=== PATIENT | male | born 2000 | race Caucasian/White ===

== ENCOUNTER 2022-09-30 00:20 | Observation (INO) | payer OTHER, SELFPAY ==
[2022-09-30] VITALS (92 sets, daily range): BP systolic 85–141; BP diastolic 48–96; PULSE 104–148; RESP 14–33; TEMP 36.3–36.4; O2SAT 96–100
[2022-09-30] MEDS: ONDANSETRON INJ 4 MG/2 ML VIAL (00:34)
--- NOTE | 2022-09-30 00:36 | ED.OVERDOSE ---
HPI - Overdose General Chief Complaint: Overdose Stated Complaint: etoh History of Present Illness HPI Narrative: Patient is a 22-year-old male presenting after an overdose. Patient was reportedly out drinking with friends tontigre. He was then found by his roommates with an empty bottle of Claritin and they were unable to wake him up so they called EMS. On arrival, patient is obviously intoxicated and hiccuping. Intermittently dry heaving. Not following commands currently but he is protecting his airway. Parents are at bedside and states they spoke with the roommates who are unsure if he took any other pills. Unsure if this was intentional or unintentional. Related Data Allergies Allergy/AdvReac Type Severity Reaction Status Date / Time No Known Allergies Allergy Verified 09/30/22 00:33 Review of Systems Review of Systems: ROS unobtainable: Yes unobtainable due to mental status PMFSH Past Medical History Medical History (Updated 10/01/22 @ 20:05 by Montserrat Morel MD) Seizure disorder During childhood. Not on any medications since age of 8 Family History Family History (Updated 09/30/22 @ 03:16 by Lindsey Parker RN) Father Heart attack Hx of heart artery stent Social History Social History (Updated 09/30/22 @ 08:56 by Edu Morrell MD) Social History: Denies smoking, denies drug use, drinks alcohol on weekends, binge drinking Smoking status: Never smoker Alcohol intake: current Substance use: never Spiritual care concerns: No Exam Narrative: GENERAL: intoxicated, intermittently dry heaving, hiccupping, protecting his airway HEAD: Normocephalic, atraumatic. EYES: pupils are 1mm, reactive and equal ENT: Nares clear, no rhinorrhea or epistaxis. Mucous membranes moist. NECK: Supple. CHEST: Clear to auscultation. No respiratory distress. HEART: Tachycardic, regular rhythm. No murmur heard. Normal peripheral pulses. ABDOMEN: Soft, nontender, nondistended, normal active bowel sounds. EXTREMITIES: Normal range of motion. No edema. SKIN: Warm, dry, no rash. NEURO: Intoxicated, sedated, moves all extremities spontaneously, full neuro exam unable to be performed due to mental status Course Vital Signs Vital signs: Vital Signs Temperature 97.3 F L 09/30/22 00:24 Pulse Rate 126 H 09/30/22 00:24 Respiratory Rate 14 09/30/22 00:24 Blood Pressure 113/55 L 09/30/22 00:24 Pulse Oximetry 99 09/30/22 00:24 Oxygen Delivery Room Air 09/30/22 00:24 Temperature 98.6 F 10/01/22 08:00 Pulse Rate 82 10/01/22 08:00 Respiratory Rate 12 10/01/22 08:00 Blood Pressure 138/82 10/01/22 08:00 Pulse Oximetry 100 10/01/22 08:00 Oxygen Delivery Room Air 09/30/22 20:00 MDM - Overdose MDM Narrative Medical decision making narrative: Patient is a 22-year-old male presenting with intoxication and possible overdose. EKG per my interpretation shows sinus tachycardia, right axis deviation, incomplete right bundle, no ST elevations or depressions. Poison control recommends supportive care and repeating CMP in 6 hours which will be around 7 AM. MAMADOU is 258. Pt becoming more awake, agitated while in the ER. He's attempting to get out of bed, not following commands. Soft restraints ordered to prevent pt from hurting self or removing IVs. Vitals remain adequate, he's saturating 100% on RA, EtCO2 averaging 35. Spoke with the ICU who has accepted the patient for observation. Spoke with the hospitalist who agrees with admission Differential Diagnosis Differential diagnosis: Likely poisoning by opiate or related narcotic, drug overdose, accidental drug ingestion and other (ethanol intoxication) Lab Data 09/30/22 00:38 09/30/22 00:38 Labs: Lab Results 09/30/22 09/30/22 09/30/22 Range/Units 00:38 00:38 00:38 WBC 10.3 H (4.5-10.0) K/mm3 RBC 5.64 (4.6-6.20) M/mm3 Hgb 17.1 (14.0-18.0) g/dL Hct 50.5 (42.0-52.0) % MCV
[2022-09-30 00:47] LABS: Basophils Absolute Auto 0.1 K/mm3 (0.0-0.1); Basophils Percent Auto 0.5 % (0.2-1.2); Eosinophils Percent Auto 0.2 % (0-4.4); Hematocrit 50.5 % (42.0-52.0); Hemoglobin 17.1 g/dL (14.0-18.0); Immature Granulocyte Absolute 0.07 K/mm3 (0.00-0.031); Immature Granulocyte Percent A 0.7 % (0-0.5); Lymphocytes Absolute Auto 2.75 K/mm3 (0.9-3.2); Lymphocytes Percent Auto 26.7 % (18.3-44.2); Mean Corpuscular HGB Conc 33.9 g/dl (32-36); Mean Corpuscular Hemoglobin 30.3 pg (26-34); Mean Corpuscular Volume 89.5 fl (80-100); Mean Platelet Volume 10.2 fl (7.4-10.4); Neutrophils Absolute Auto 6.4 K/mm3 (1.3-6.7); Neutrophils Percent Auto 61.9 % (45.5-73.1); Platelet Count Result 276 k/mm3 (150-375); Red Blood Count 5.64 M/mm3 (4.6-6.20); Red Cell Distribution Width 12.2 % (11.5-14.5); White Blood Count 10.3 K/mm3 (4.5-10.0)
--- NOTE | 2022-09-30 00:51 | ECG_ITS ---
Measurements Intervals [place] Rate: 109 P: 65 [place]: 165 QRS: 94 QRSD: 95 T: 14 QT: 326 QTc: 439 Interpretive Statements SINUS TACHYCARDIA RIGHT AXIS DEVIATION POSSIBLE LEFT ATRIAL ENLARGEMENT INCOMPLETE RIGHT BUNDLE BRANCH BLOCK NONSPECIFIC T-WAVE ABNORMALITY- INFERIOR LEADS ABNORMAL ECG NO PREVIOUS ECG AVAILABLE FOR COMPARISON Electronically Signed On 09-30-2022 6:52:01 BIOLOGY INTERN by Isma Patel D.O.
[2022-09-30 00:54] LABS: Acetaminophen < 10 ug/mL (10-30); Ethanol 258 mg/dL (<10); Salicylate < 1.0 mg/dL (2-20)
--- NOTE | 2022-09-30 00:55 | PC.NURSE ---
Sophie from poison control called to get update on pt. Sophie recommends supportive care, IV fluids, cardiac monitoring, and repeat CMP in 6 hours.
--- NOTE | 2022-09-30 00:56 | PC.NURSE ---
Perwick applied to pt at this time. SKin intact at this time.
[2022-09-30 00:57] LABS: Alanine Aminotransferase 21 U/L (6-50); Albumin Level 4.3 g/dL (3.5-5.1); Alkaline Phosphatase 88 U/L (38-126); Anion Gap 14 mmol/L (8-16); Aspartate Amino Transferase 35 U/L (17-59); Bilirubin,Total 0.4 mg/dL (0.2-1.3); Blood Urea Nitrogen 7 mg/dL (9-20); Calcium 8.7 mg/dL (8.4-10.2); Carbon Dioxide 23 mmol/L (22-30); Chloride 112 mmol/L (98-107); Estimated Glomerular Filt Rate > 60; Glucose 97 mg/dL (65-110); Potassium 4.2 mmol/L (3.4-5.0); Sodium 149 mmol/L (137-145)
[2022-09-30] MEDS: SODIUM CHLORIDE 0.9% IV 1,000 ML 999 ML IV CONT ×2 (01:13→01:22)
[2022-09-30 01:14] LABS: Mucus Urine Rare /lpf; RBC Urine 0-2 /hpf (0-2); Squamous Epithelial Cell Urine Rare /hpf (Few); WBC Urine 0-3 /hpf
[2022-09-30 01:18] LABS: Add Urine Microscopic? NO; Appearance Urine Clear (Clear); Bilirubin Urine Negative (Negative); Blood Urine Negative (Negative); Color Urine Yellow (Yellow); Glucose Urine UA Negative (Negative); Ketones Urine Negative (Negative); Leukocyte Esterase Ur Negative LEU/UL (Negative); Nitrate Urine Negative (Negative); Protein Urine Negative (Negative); Specific Grav Ur 1.015 (1.001-1.035); Urobilinogen Urine 0.2 mg/dL (<2.0); pH Urine 5.5 (5.0-9.0)
[2022-09-30 01:30] LABS: Amphetamine Screen Urine Negative (Negative); Barbiturate Screen Urine Negative (Negative); Benzodiazepines Screen Urine Negative (Negative); Cannabinoid Screen Urine Negative (Negative); Cocaine Screen Urine Negative (Negative); Methadone Screen Urine Negative (Negative); Opiate Screen Urine Negative (Negative); Phencyclidine Screen Urine Negative (Negative)
[2022-09-30 01:46] LABS: Base Excess ABG -6.5 mEq/l (+/-2.0); Fractional Inspired Oxygen 21 %; HCO3 ABG 20.3 mEq/l (22.0-26.0); Oxygen Saturation ABG 97.7 % (95.0-100.0); Oxyhemoglobin 96.3 % THb (90.0-100.0); PCO2 ABG 45.1 mmHg (35.0-45.0); PO2 ABG 115.6 mmHg (80.0-100.0); Total Hemoglobin 15.4 g/dL (12.0-18.0)
[2022-09-30 01:49] LABS: Device ROOM AIR; Modified Allen's Test Unable to perform; Site Drawn RIGHT RADIAL; pH ABG 7.272 (7.350-7.450)
--- NOTE | 2022-09-30 02:20 | PM.IMHP ---
H&P: HPI History of Present Illness Date/Time: 09/30/22 02:20 Chief Complaint: Altered mental status Narrative: This is a 22-year-old male with known significant past medical history patient was out with friends were drinks were involved later on patient was found unresponsive with an empty bottle of Claritin and anti but of ibuprofen patient was brought to the emergency room for evaluation. At the time of my visit patient is thrashing about in bed unable to give any history parents are at bedside. Preliminary workup was significant for ABG with a pH of 7.27, pCO2 45 PO2 114 and alcohol level was 256. Poison Control was called. Patient is been placed in ICU for one-to-one monitoring, further evaluation management and treatment. Review of Systems Review of Systems: ROS unobtainable: Yes unobtainable due to mental status (Intoxicated) PMFSH Family History Family History (Updated 09/30/22 @ 03:16 by Lindsey Parker RN) Father Heart attack Hx of heart artery stent Social History Social History Smoking status: Never smoker Alcohol intake: current Substance use: never Spiritual care concerns: No Meds Home Medications and Allergies Home Medications Medication Instructions Recorded Confirmed Type No Home Medications 09/30/22 09/30/22 History Allergies Allergy/AdvReac Type Severity Reaction Status Date / Time No Known Allergies Allergy Verified 09/30/22 00:33 Vital Signs Vital Signs - 24 hr 09/30/22 00:24 09/30/22 00:34 09/30/22 00:41 Temperature 97.3 F L Pulse Rate 126 H 115 H 111 H Respiratory Rate 14 22 H Blood Pressure 113/55 L Pulse Oximetry 99 98 Oxygen Delivery Room Air 09/30/22 00:45 09/30/22 00:53 09/30/22 01:03 Temperature Pulse Rate 122 H 110 H 108 H Respiratory Rate 33 H 18 21 H Blood Pressure 114/57 L Pulse Oximetry 100 100 98 Oxygen Delivery 09/30/22 01:18 09/30/22 01:30 09/30/22 01:31 Temperature Pulse Rate 113 H 115 H 113 H Respiratory Rate 20 19 18 Blood Pressure 111/59 L Pulse Oximetry 98 97 97 Oxygen Delivery 09/30/22 01:45 09/30/22 01:51 09/30/22 02:00 Temperature Pulse Rate 133 H 110 H 108 H Respiratory Rate 22 H 17 18 Blood Pressure 121/59 L Pulse Oximetry 100 99 98 Oxygen Delivery 09/30/22 02:01 Temperature Pulse Rate 108 H Respiratory Rate 18 Blood Pressure 99/52 L Pulse Oximetry 99 Oxygen Delivery Exam Narrative: Patient is laying in a stretcher Const: General: comfortable, no acute distress, well developed, average body habitus and other (Thrashing about, stuporous.) Nutritional Appearance: average body habitus Orientation/consciousness: Other orientation findings (Stuporous) HENMT: Head: normal to inspection, normocephalic and atraumatic Ears: hearing grossly normal bilaterally Face/Nose/Sinus: normal facial exam Face and sinus: normal facial exam Eyes: General: appearance normal, both eyes and all related structures Pupils: Equal, round and reactive pupils present EOM: EOMs intact bilaterally Neck: Neck: full ROM, no lymphadenopathy and no JVD Thyroid: thyroid normal Lymphatic: no lymphadenopathy noted Resp: Effort & Inspection: normal respiratory effort and able to speak in complete sentences Auscultation: clear to auscultation bilaterally Cardio: Jugular venous distension: no JVD Rate: regular rate Rhythm: regular rhythm Heart sounds: S1 normal heart sound present and S2 normal heart sound present GI: GI Palp: Yes Soft to palpation and Yes No hepatosplenomegaly present : General: Yes deferred Skin: Rashes: no rashes Wounds: no wounds Neuro: General: CN's II-XI intact bilaterally Cranial nerves: Yes CN's II-XII intact bilaterally and Yes Equal, round and reactive pupils present Cognition (Neuro): abnormal cognition (Stuporous) Gait exam (Neuro): Unable to assess gait Motor exam (neuro): 5/5 motor stre
--- NOTE | 2022-09-30 02:43 | ADMGEN ---
This patient, Bertram Boudreaux III, was admitted to Intensive Care Unit-10. Patient/family oriented to hospital policies and general routines including ID bracelet, bed and alarms, visiting hours, pain management, procedures, bathroom and other care routines, personal items, smoking policy, room service/diet, and visiting hours. Information on how to activate the Rapid Response Team has been discussed. Patient/Family are encouraged to report perceived risks to care and to ask questions if they do not understand what they are told or what they should do.
--- NOTE | 2022-09-30 02:54 | PC.NURSE ---
COVID SWAB was in tube station. Sent to lab at 0253.
[2022-09-30 03:30] LABS: Influenza A QL RT-PCR Negative (Negative); Influenza B QL RT-PCR Negative (Negative); RSV RNA, RT-PCR Negative (Negative); SARS-CoV-2 RNA PCR Negative
[2022-09-30] MEDS: DEXTROSE 5%/0.45% SOD CHL 1,000 ML 75 ML IV CONT ×2 (03:34→08:31)
--- NOTE | 2022-09-30 06:38 | PC.NURSE ---
Updated Mohan, from Poison Control, to pt's most recent VS and current condition. Mohan states to continue supportive care for pt and report any adverse condition changes to Poison Control.
[2022-09-30 07:54] LABS: Alanine Aminotransferase 20 U/L (6-50); Alkaline Phosphatase 79 U/L (38-126); Anion Gap 15 mmol/L (8-16); Aspartate Amino Transferase 35 U/L (17-59); Bilirubin,Total 0.3 mg/dL (0.2-1.3); Blood Urea Nitrogen 6 mg/dL (9-20); Calcium 8.2 mg/dL (8.4-10.2); Carbon Dioxide 17 mmol/L (22-30); Chloride 116 mmol/L (98-107); Estimated CRCL calculation 113 ml/min; Estimated Glomerular Filt Rate > 60; Glucose 124 mg/dL (65-110); Potassium 4.2 mmol/L (3.4-5.0); Sodium 148 mmol/L (137-145)
[2022-09-30] MEDS: LACTATED RINGERS 1,000 ML 999 ML IV CONT (08:04)
--- NOTE | 2022-09-30 08:07 | ECG_ITS ---
Measurements Intervals [place] Rate: 126 P: 61 HI: 171 QRS: 100 QRSD: 96 T: 32 QT: 304 QTc: 441 Interpretive Statements SINUS TACHYCARDIA RIGHT AXIS DEVIATION INCOMPLETE RIGHT BUNDLE BRANCH BLOCK ABNORMAL ECG COMPARED TO ECG 09/30/2022 00:59:18 HEART RATE HAS INCREASED Electronically Signed On 09-30-2022 8:52:08 FOOD SERVICE TECHNICIAN by Isma Patel D.O.
[2022-09-30] MEDS: SODIUM CHLORIDE 0.45% 1,000 ML 999 ML IV CONT (08:30)
--- NOTE | 2022-09-30 08:55 | WPDCNINT ---
Assessment and Plan Assessment and plan (1) Alcohol intoxication: Code(s): F10.929 - Alcohol use, unspecified with intoxication, unspecified Status: Acute Assessment and Plan: Patient presented with alcohol intoxication. He does do binge drinking on weekends Clinically improved patient is now alert oriented x3 Continue IV fluids Will give additional IV fluid bolus Thiamine and folic acid (2) Overdose of drug/medicinal substance: Code(s): T50.901A - Poisoning by unspecified drugs, medicaments and biological substances, accidental (unintentional), initial encounter Status: Acute Assessment and Plan: Patient took unknown amount of Claritin and ibuprofen Mental status clinically improved as he is AO x3 Still tachycardic-will give additional IV fluid bolus and continue IV fluids Repeat EKG done this morning shows incomplete right bundle branch block and sinus tach (3) Suicide attempt: Code(s): T14.91XA - Suicide attempt, initial encounter Status: Acute Assessment and Plan: Patient admits to taking pills in order to commit suicide. He is not very forthcoming with the information. No known history of depression Continue suicide precautions and one-to-one sitter Will request psychiatry to evaluate patient tomorrow (4) Dehydration: Code(s): E86.0 - Dehydration Status: Acute Assessment and Plan: Elevated sodium and chloride Continue D5 half-normal saline Patient was given IV fluid bolus with half-normal saline Start diet today Plan DVT prophylaxis -SCDs Stress ulcer prophylaxis - Nutrition -regular diet Code Status - Full Code Transfer out of ICU today. Continue suicide precautions Publication Director Consult Note Consult date: 09/30/22 Reason for consult: Alcohol intoxication, drug overdose HPI: Bertram Boudreaux III is a 22 year old male with no known past medical history who was out drinking alcohol last night. In ED it was reported that he was out with friends but to me he told me that he was drinking by himself. He states he does binge drinking on weekends. He was found by his roommate unresponsive. There was a empty bottle of Claritin at bedside. Patient was admitted to ICU with alcohol intoxication and suspected of taking unknown amount of Claritin pills. Patient this morning is much more awake but is still not very forthcoming with history. He admitted that he was drinking wine yesterday and drink heavily. He states he takes Claritin for nasal congestion and ibuprofen for headaches. He initially told me that he took 4 pills of each for later he admitted that he does not remember how many pills he took. Later during our conversation he admitted that he was trying to hurt himself although he denies any history of depression or treatment for it in the past. He was unable to give me any reason for that. Patient denies fever, chest pain, shortness of breath, cough, nausea vomiting, abdominal pain,, diarrhea, headache or constipation. He states he is not hungry. All other systems were reviewed and were negative Patient's parents arrive at bedside and I spoke to them with patient's permission. 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 They stated the patient is not currently on any prescription medication and does not have any history except that he had seizures when he was child but has not had any medications since age of 8. They were not aware of any issues with depression. Review of Systems Review of Systems: All systems reviewed & are unremarkable except as noted in HPI and below (HPI) [facility] Past Medical History Medical History (Updated 09/30/22 @ 08:59 by Edu Morrell MD) Seizure disorder During childhood. Not on any medications since age of 8 Family History Family History (Updated 09/30/22 @ 03:16 by Lindsey Parker RN) Father Heart attack Hx of heart artery stent Social History Social History (Updated 09/30
--- NOTE | 2022-09-30 11:34 | PM.IMPN ---
Progress Note: A&P Assessment and Plan (1) Alcohol intoxication: Code(s): F10.929 - Alcohol use, unspecified with intoxication, unspecified Status: Acute Assessment and Plan: Patient presented with alcohol intoxication. Also apparently he took Claritin tablets. He does do binge drinking on weekends Clinically improved patient is now alert oriented x3 Continue IV fluids Monitor, will need crisis eval once medically stable (2) Overdose of drug/medicinal substance: Code(s): T50.901A - Poisoning by unspecified drugs, medicaments and biological substances, accidental (unintentional), initial encounter Status: Acute Assessment and Plan: Patient took unknown amount of Claritin and ibuprofen Mental status clinically improved as he is AO x3 Still tachycardic-will give additional IV fluid bolus and continue IV fluids (3) Suicide attempt: Code(s): T14.91XA - Suicide attempt, initial encounter Status: Acute Assessment and Plan: [facility] crisis eval once medically stable (4) Dehydration: Code(s): E86.0 - Dehydration Status: Acute Assessment and Plan: IV fluids Subjective Date/time seen: 09/30/22 11:34 Overall feeling much better. Still tachycardic. Otherwise vitals are stable Exam Narrative: General: Pt is alert awake and in NAD Lungs/Chest: Trachea central Clear BS B/L, No crackles or wheezing. Cardiac: RRR. Normal S1 S2. No murmurs Circulation: Pedal pulses are intact and symmetrical. Abdomen: Normal bowel sounds.. Soft. NT. ND. Extremities: No clubbing, cyanosis or edema. Warm : [place] in place Neurologic: Follows commands. Moves all 4 extremities PERRL AO x3 now Skin: No Rash Objective Data Vital Signs Vital Signs: Vital Signs - 24 hr 09/30/22 00:24 09/30/22 00:34 09/30/22 00:41 Temperature 97.3 F L Pulse Rate 126 H 115 H 111 H Respiratory Rate 14 22 H Blood Pressure 113/55 L Pulse Oximetry 99 98 Oxygen Delivery Room Air 09/30/22 00:45 09/30/22 00:53 09/30/22 01:03 Temperature Pulse Rate 122 H 110 H 108 H Respiratory Rate 33 H 18 21 H Blood Pressure 114/57 L Pulse Oximetry 100 100 98 Oxygen Delivery 09/30/22 01:18 09/30/22 01:30 09/30/22 01:31 Temperature Pulse Rate 113 H 115 H 113 H Respiratory Rate 20 19 18 Blood Pressure 111/59 L Pulse Oximetry 98 97 97 Oxygen Delivery 09/30/22 01:45 09/30/22 02:34 09/30/22 01:51 Temperature Pulse Rate 133 H 148 H 110 H Respiratory Rate 22 H 17 17 Blood Pressure 118/96 H 121/59 L Pulse Oximetry 100 97 99 Oxygen Delivery 09/30/22 02:00 09/30/22 02:01 09/30/22 03:12 Temperature 97.6 F Pulse Rate 108 H 108 H 112 H Respiratory Rate 18 18 19 Blood Pressure 99/52 L 141/84 H Pulse Oximetry 98 99 100 Oxygen Delivery 09/30/22 03:00 09/30/22 04:00 09/30/22 04:00 Temperature Pulse Rate 108 H Respiratory Rate Blood Pressure Pulse Oximetry Oxygen Delivery Room Air Room Air 09/30/22 03:02 09/30/22 04:00 09/30/22 06:00 Temperature Pulse Rate 119 H 108 H 106 H Respiratory Rate 19 Blood Pressure 99/53 L Pulse Oximetry 97 Oxygen Delivery 09/30/22 06:00 09/30/22 08:00 09/30/22 10:00 Temperature Pulse Rate 106 H 122 H 116 H Respiratory Rate 19 19 Blood Pressure 98/53 L Pulse Oximetry 97 98 Oxygen Delivery Room Air 09/30/22 02:59 09/30/22 03:00 09/30/22 03:15 Temperature Pulse Rate 106 H Respiratory Rate 20 Blood Pressure 141/84 H Pulse Oximetry 99 99 99 Oxygen Delivery 09/30/22 03:16 09/30/22 03:30 09/30/22 03:31 Temperature Pulse Rate 106 H 104 H 104 H Respiratory Rate 21 H 22 H 21 H Blood Pressure 101/50 L 96/51 L Pulse Oximetry 99 97 97 Oxygen Delivery 09/30/22 03:45 09/30/22 03:46 09/30/22 04:00 Temperature Pulse Rate 105 H 106 H 107 H Respiratory Rate 20 20 21 H Blood Pressure 94/53 L Pulse Oximetry 96 96 96 Oxygen Delivery 0
[2022-09-30 18:13] LABS: Alanine Aminotransferase 23 U/L (6-50); Albumin Level 4.4 g/dL (3.5-5.1); Alkaline Phosphatase 69 U/L (38-126); Anion Gap 10 mmol/L (8-16); Aspartate Amino Transferase 35 U/L (17-59); Bilirubin,Total 0.3 mg/dL (0.2-1.3); Blood Urea Nitrogen 8 mg/dL (9-20); Calcium 8.4 mg/dL (8.4-10.2); Carbon Dioxide 22 mmol/L (22-30); Chloride 111 mmol/L (98-107); Estimated CRCL calculation 100 ml/min; Estimated Glomerular Filt Rate > 60; Glucose 105 mg/dL (65-110); Potassium 3.9 mmol/L (3.4-5.0); Sodium 143 mmol/L (137-145)
--- NOTE | 2022-09-30 18:43 | PC.NURSE ---
133Adair Preston from poison control called and stated to continue to monitor and repeat cmp at 1730. Notified Dr Panchal of call and cmp ordered.
[2022-10-01] VITALS: BP 117/81; PULSE 93; RESP 17; TEMP 37.6; O2SAT 93
[2022-10-01 04:11] LABS: Hematocrit 43.1 % (42.0-52.0); Hemoglobin 14.5 g/dL (14.0-18.0); Mean Corpuscular HGB Conc 33.6 g/dl (32-36); Mean Platelet Volume 10.5 fl (7.4-10.4); Platelet Count Result 235 k/mm3 (150-375); Red Blood Count 4.84 M/mm3 (4.6-6.20); Red Cell Distribution Width 12.6 % (11.5-14.5); White Blood Count 10.8 K/mm3 (4.5-10.0)
[2022-10-01 04:20] LABS: Alanine Aminotransferase 23 U/L (6-50); Alkaline Phosphatase 64 U/L (38-126); Anion Gap 6 mmol/L (8-16); Aspartate Amino Transferase 32 U/L (17-59); Bilirubin,Total 0.4 mg/dL (0.2-1.3); Blood Urea Nitrogen 10 mg/dL (9-20); Calcium 8.5 mg/dL (8.4-10.2); Carbon Dioxide 22 mmol/L (22-30); Chloride 111 mmol/L (98-107); Estimated CRCL calculation 91 ml/min; Estimated Glomerular Filt Rate > 60; Glucose 84 mg/dL (65-110); Potassium 3.5 mmol/L (3.4-5.0); Sodium 139 mmol/L (137-145)
[2022-10-01 08:00] VITALS: BP 138/82; PULSE 82; RESP 12; TEMP 37; O2SAT 100
[2022-10-01] MEDS: THIAMINE HCL 100 MG TABLET PO (09:20)
[2022-10-01] MEDS: FOLIC ACID 1 MG TABLET PO (09:20)
--- NOTE | 2022-10-01 11:24 | PM.DS ---
DS: Admitting Diagnosis Discharge Date 10/01/2022 Admitting Diagnosis Altered mental status DS: Discharge Diagnosis Discharge Diagnosis (1) Alcohol intoxication: Code(s): F10.929 - Alcohol use, unspecified with intoxication, unspecified Status: Acute Assessment and Plan: Patient presented with alcohol intoxication. Also apparently he took Claritin tablets. He does do binge drinking on weekends Clinically improved patient is now alert oriented x3 Continue IV fluids Monitor, will need crisis eval once medically stable (2) Overdose of drug/medicinal substance: Code(s): T50.901A - Poisoning by unspecified drugs, medicaments and biological substances, accidental (unintentional), initial encounter Status: Acute Assessment and Plan: Patient took unknown amount of Claritin and ibuprofen Mental status clinically improved as he is AO x3 Still tachycardic-will give additional IV fluid bolus and continue IV fluids (3) Suicide attempt: Code(s): T14.91XA - Suicide attempt, initial encounter Status: Acute Assessment and Plan: [facility] crisis eval once medically stable (4) Dehydration: Code(s): E86.0 - Dehydration Status: Acute Assessment and Plan: IV fluids DS: Summary Hospital Course Reason for hospitalization: Altered mental status Narrative: This is a 22-year-old male with known significant past medical history patient was out with friends were drinks were involved later on patient was found unresponsive with an empty bottle of Claritin and anti but of ibuprofen patient was brought to the emergency room for evaluation.? At the time of my visit patient is thrashing about in bed unable to give any history parents are at bedside.? Preliminary workup was significant for ABG with a pH of 7.27, pCO2 45 PO2 114 and alcohol level was 256.? Poison Control was called.? Patient is been placed in ICU for one-to-one monitoring, further evaluation management and treatment. Hospital Course: Patient with alcohol abuse and concern for suicide was seen by crisis team, has made safety contract with patient, his father is present in the room and agreeable to take the patient with him and will monitor him closely, will discharge patient with his father and to follow up with his primary care provider as soon as possible, patient is instructed if any symptoms redevelop to go to nearest ER. Time Spent with Patient Time attestation: Total time spent providing and/or coordinating discharge services: Exam Narrative: Patient is comfortable, NAD HEENT: eyes are clear and none icteric LUNGS:CTA HEART: RR S1S2 ABD: BS+, Soft and nontender Lower extremities: no edema SKIN: nonjaundiced Neuro: grossly intact. DS: Data Data Completed and Pending Labs on day of discharge: Labs from last 24 hours 10/01/22 10/01/22 10/01/22 03:20 03:20 03:20 WBC 10.8 H RBC 4.84 Hgb 14.5 Hct 43.1 MCV 89.0 MCH 30.0 MCHC 33.6 RDW 12.6 Plt Count 235 MPV 10.5 H Sodium 139 Potassium 3.5 Chloride 111 H Carbon Dioxide 22 Anion Gap 6 L BUN 10 Creatinine 1.10 Estim Creat Clear Calc 91 Estimated GFR > 60 Glucose 84 Calcium 8.5 Magnesium 2.0 Total Bilirubin 0.4 AST 32 ALT 23 Alkaline Phosphatase 64 Total Protein 7.0 Albumin 4.0 Ethyl Alcohol Pending 09/30/22 17:34 WBC RBC Hgb Hct MCV MCH MCHC RDW Plt Count MPV Sodium 143 Potassium 3.9 Chloride 111 H Carbon Dioxide 22 Anion Gap 10 BUN 8 L Creatinine 1.00 Estim Creat Clear Calc 100 Estimated GFR > 60 Glucose 105 Calcium 8.4 Magnesium Total Bilirubin 0.3 AST 35 ALT 23 Alkaline Phosphatase 69 Total Protein 8.0 Albumin 4.4 Ethyl Alcohol Discharge Plan Discharge Attending physician on discharge: Domingo Juárez Consulting providers: Edu Morrell ; Isma Patel ; Duane Panchal
[2022-10-01 11:27] LABS: Ethanol < 10 mg/dL (<10)
== END 2022-10-01 12:05 | disposition home or self-care (01) ==
LOC: ANHED 02:07 → ANHICU 02:35
PROVIDERS: Chiropractor; Internal Medicine; Admitting Provider Internal Medicine; Emergency Provider Emergency Medicine; Visit Provider Family Medicine
DX: F10.129 Alcohol abuse with intoxication, unspecified (principal); Y90.8 Blood alcohol level of 240 mg/100 ml or more; T50.901A Poisoning by unspecified drugs, medicaments and biological substances, accidental (unintentional), initial encounter; T14.91XA Suicide attempt, initial encounter; E86.0 Dehydration; Z20.822 Contact with and (suspected) exposure to COVID-19; R41.82 Altered mental status, unspecified; R00.0 Tachycardia, unspecified; I45.10 Unspecified right bundle-branch block; R94.31 Abnormal electrocardiogram [ECG] [EKG]
CPT/HCPCS: 36415; 36600; 80053; 80307; 81003; 82805; 83735; 85025; 85027; 87637; 93005; 96361; 96374; 99285; A9270; G0378; J2405; J7030; J7120